=== PATIENT | female | born 1980 | race Two or more races ===

== ENCOUNTER 2023-06-06 16:39 | Emergency (ER) | payer MEDICARE, MEDICAID ==
[~2023-06-06] VITALS: Ht 160 cm; Wt 72.0 kg
[2023-06-06 17:54] LABS: Eosinophils # (auto) 0.2 10 ^3/uL (0-0.8); Mean Corpuscular Hgb Conc. 32.1 g/dL (32.0-36.0); Monocytes # (auto) 0.4 10 ^3/uL (0-1.3); Monocytes % (auto) 5.5 % (0.0-12.0); Neutrophils # (auto) 4.4 10 ^3/uL (1.6-8.6); Nucleated Red Blood Cells % 0.1 %
[2023-06-06 17:56] LABS: Basophils # (auto) 0 10 ^3/uL (0-0.2); Basophils % (auto) 0.6 % (0.0-2.0); Eosinophils % (auto) 2.3 % (0.0-7.0); Hematocrit 43.6 % (36.0-46.0); Lymphocytes # (auto) 2.8 10 ^3/uL (0.4-5.4); Lymphocytes % (auto) 35.4 % (10.0-50.0); Mean Corpuscular Volume 84.1 fL (80.0-100.0); Neutrophils % (auto) 56.2 % (37.0-80.0); Red Blood Cells 5.18 10^6/uL (4.0-5.20); Red Cell Distribution Width 15.1 % (11.8-14.3); White Blood Cell 7.9 10^3/uL (4.4-10.8)
[2023-06-06] MEDS ORDERED: SODIUM CHLORIDE 0.9% 1,000 ML IV ONE (18:00)
[2023-06-06 18:03] LABS: Urine Bacteria MANY /hpf (None Seen); Urine Blood Negative /uL (Negative); Urine Clarity HAZY (Clear); Urine Color Yellow (Yellow); Urine Mucus MODERATE (None Seen); Urine Protein, UAD 1+ (Negative); Urine Specific Gravity 1.041 (1.001-1.035); Urine WBC 11 /hpf (0 - 5)
[2023-06-06 18:08] LABS: Alanine Aminotransferase 22 U/L (7-40); Albumin 4.6 g/dL (3.2-4.8); Alkaline Phosphatase 32 U/L (46-116); Anion Gap 6.9 (5-15); Aspartate Aminotransferase 33 U/L (13-40); BUN/Creatinine Ratio 17.6 (10.0-20.0); Blood Urea Nitrogen 12 mg/dL (9-23); Calcium 9.3 mg/dL (8.7-10.4); Carbon Dioxide 19.1 mmol/L (20-30); Chloride 109 mmol/L (98-107); Glucose 90 mg/dL (74-106); Potassium 4.7 mmol/L (3.5-5.1); Sodium 135 mmol/L (136-145)
[2023-06-06 18:09] LABS: Bilirubin, Total 0.4 mg/dL (0.2-1.0); Total Protein 7.7 g/dL (5.7-8.2)
[2023-06-06] MEDS: PROCHLORPERAZINE EDISYLATE 5 MG/ML 2ML VIAL IV ONE ×2 (18:12→18:30)
[2023-06-06] MEDS ORDERED: MORPHINE SULFATE 4 MG/ML SYR/VIAL IM ONE (18:30)
[2023-06-06] MEDS ORDERED: CIPROFLOXACIN HCL 500 MG TAB PO ONE (18:30)
[2023-06-06] MEDS ORDERED: ONDANSETRON HCL 4 MG/2 ML VIAL IM ONE (18:30)
[2023-06-06 19:09] VITALS: BP 126/85; PULSE 98; RESP 17; TEMP 98.7; O2SAT 100
[2023-06-06] MEDS ORDERED: ZOFR4T PO (19:48)
[2023-06-06] MEDS ORDERED: CIPR-173 PO (19:48)
== END 2023-06-06 19:57 | disposition home or self-care (01) ==
LOC: ER 16:39
DX: R42 Dizziness and giddiness (principal); N39.0 Urinary tract infection, site not specified; E78.5 Hyperlipidemia, unspecified; Z90.49 Acquired absence of other specified parts of digestive tract; Z79.899 Other long term (current) drug therapy
CPT/HCPCS: 36415; 70450; 71046; 80053; 81001; 82962; 83735; 85025; 93005; 96372; 99285; J0780; J2270; J2405; J7030

== ENCOUNTER 2023-10-17 16:04 | Emergency (ER) | payer MEDICARE, MEDICAID ==
[~2023-10-17] VITALS: Ht 160 cm; Wt 75.0 kg
[~2023-10-17 16:04] MED LIST: CIPR-173 PO; ZOFR4T PO
[2023-10-17] MEDS ORDERED: IPRATROPIUM BROM 0.5 MG/2.5ML INH SOL HHN ONE (16:45)
[2023-10-17] MEDS ORDERED: PROCHLORPERAZINE EDISYLATE 5 MG/ML 2ML VIAL IV ONE (16:45)
[2023-10-17] MEDS ORDERED: LACTATED RINGER'S 1,000 ML IV ONE (16:45)
[2023-10-17] MEDS ORDERED: DexAMETHasone SOD PHOS 10MG/1ML VIAL INJ IV ONE (16:45)
[2023-10-17] MEDS ORDERED: MORPHINE SULFATE INJ 2 MG/ml SYRG IV ONE (16:45)
[2023-10-17] MEDS ORDERED: ALBUTEROL SULF 2.5 MG/0.5ML(0.5%) NEB SOLN HHN ONE (16:45)
[2023-10-17 19:32] LABS: Basophils # (auto) 0.1 10 ^3/uL (0-0.2); Basophils % (auto) 0.6 % (0.0-2.0); Eosinophils # (auto) 0.1 10 ^3/uL (0-0.8); Eosinophils % (auto) 0.9 % (0.0-7.0); Hematocrit 41.5 % (36.0-46.0); Hemoglobin 13.4 g/dL (12.2-16.2); Lymphocytes # (auto) 3.4 10 ^3/uL (0.4-5.4); Lymphocytes % (auto) 27.8 % (10.0-50.0); Mean Corpuscular Hemoglobin 26.6 pg (28.0-32.0); Mean Corpuscular Hgb Conc. 32.2 g/dL (32.0-36.0); Mean Corpuscular Volume 82.7 fL (80.0-100.0); Monocytes # (auto) 0.7 10 ^3/uL (0-1.3); Neutrophils # (auto) 7.9 10 ^3/uL (1.6-8.6); Neutrophils % (auto) 64.7 % (37.0-80.0); Nucleated Red Blood Cells % 0.1 %; Red Blood Cells 5.02 10^6/uL (4.0-5.20); Red Cell Distribution Width 14.2 % (11.8-14.3); White Blood Cell 12.2 10^3/uL (4.4-10.8)
[2023-10-17 19:38] LABS: Chloride 109 mmol/L (98-107); Sodium 138 mmol/L (136-145)
[2023-10-17 19:41] LABS: Anion Gap 10 (5-15); Calcium 8.9 mg/dL (8.7-10.4); Carbon Dioxide 19 mmol/L (20-30)
[2023-10-17 19:46] LABS: Alkaline Phosphatase 38 U/L (46-116); Glucose 97 mg/dL (74-106); Magnesium 2.1 mg/dL (1.6-2.6)
[2023-10-17 19:48] LABS: Albumin 4.5 g/dL (3.2-4.8); Aspartate Aminotransferase 30 U/L (13-40); Bilirubin, Total 0.4 mg/dL (0.2-1.0); Total Protein 7.4 g/dL (5.7-8.2)
[2023-10-17 19:52] LABS: Alanine Aminotransferase 34 U/L (7-40); Blood Urea Nitrogen 12 mg/dL (9-23); Lipase 35 U/L (12-53); Potassium 3.7 mmol/L (3.5-5.1)
[2023-10-17 20:30] VITALS: TEMP 98.9; O2SAT 95
[2023-10-17 20:53] VITALS: BP 125/58; PULSE 117; RESP 18
[2023-10-17] MEDS ORDERED: PRED20TA2 PO (22:00)
[2023-10-17] MEDS ORDERED: ALBU108A5 IN (22:00)
[2023-10-17] MEDS ORDERED: LEVO500T91 PO (22:00)
[2023-10-17] MEDS ORDERED: CYCL-611 PO (22:02)
== END 2023-10-17 22:58 | disposition home or self-care (01) ==
LOC: ER 16:04 → EDUNIT# 16:04 → EDBD 16:04 → ER 22:58
DX: B34.9 Viral infection, unspecified (principal); R10.2 Pelvic and perineal pain; R07.81 Pleurodynia; J45.909 Unspecified asthma, uncomplicated; Z88.1 Allergy status to other antibiotic agents; Z79.899 Other long term (current) drug therapy
CPT/HCPCS: 36415; 71046; 80053; 83605; 83690; 83735; 84702; 85025; 87040; 93005; 94640; 96361; 96374; 96375; 99285; J0780; J1100; J2270; J7644

== ENCOUNTER 2024-04-08 21:49 | Emergency (ER) | payer BC, MEDICAID ==
[~2024-04-08] VITALS: Ht 162.6 cm; Wt 63.6 kg
[~2024-04-08 21:49] MED LIST changes: +ALBU108A5 IN; +ALPR1TAB7 PO; +ATOR40TA52 PO; +CHOL500023 PO; -CIPR-173 PO; +HYD25TP TOP; +HYDR-3682 PO; +LEVO500T91 PO; +RIZA10TA50 PO; +ROPI1TAB78 PO; +SENN-105 PO; +ZOLP10TA6 PO
[2024-04-09] MEDS: HYDROcodone-ACET 10/325MG TAB PO ONE (01:08)
[2024-04-09 01:16] VITALS: BP 146/81; PULSE 98; RESP 20; TEMP 97.5; O2SAT 97
== END 2024-04-09 01:21 | disposition home or self-care (01) ==
LOC: ER 21:49 → EDBD 21:49 → ER 04-09 01:18
DX: S09.93XA Unspecified injury of face, initial encounter (principal); R51.9 Headache, unspecified; J45.909 Unspecified asthma, uncomplicated; Z90.49 Acquired absence of other specified parts of digestive tract; Z88.1 Allergy status to other antibiotic agents; Z88.8 Allergy status to other drugs, medicaments and biological substances; Y04.0XXA Assault by unarmed brawl or fight, initial encounter; Y93.89 Activity, other specified; Y92.89 Other specified places as the place of occurrence of the external cause; Y99.8 Other external cause status
CPT/HCPCS: 70486

== ENCOUNTER 2024-05-17 19:31 | Emergency (ER) | payer BC, MEDICAID ==
[~2024-05-17] VITALS: Ht 162.6 cm; Wt 68.0 kg
[2024-05-17 19:40] VITALS: BP 130/83; RESP 17; O2SAT 97
[2024-05-17] MEDS ORDERED: SODIUM CHLORIDE 0.9% 1,000 ML IVB ONE (19:45)
[2024-05-17] MEDS ORDERED: PANTOPRAZOLE 40 MG/10 ML VIAL INJ IV ONE (19:45)
[2024-05-17] MEDS ORDERED: PROCHLORPERAZINE EDISYLATE 5 MG/ML 2ML VIAL IV ONE (19:45)
[2024-05-17 20:17] VITALS: PULSE 122
[2024-05-17 20:33] LABS: Basophils # (auto) 0.1 10 ^3/uL (0-0.2); Basophils % (auto) 0.6 % (0.0-2.0); Eosinophils # (auto) 0.1 10 ^3/uL (0-0.8); Eosinophils % (auto) 0.6 % (0.0-7.0); Hematocrit 48.9 % (36.0-46.0); Hemoglobin 16.2 g/dL (12.2-16.2); Lymphocytes # (auto) 3.4 10 ^3/uL (0.4-5.4); Lymphocytes % (auto) 34.2 % (10.0-50.0); Mean Corpuscular Hemoglobin 27.3 pg (28.0-32.0); Mean Corpuscular Hgb Conc. 33.1 g/dL (32.0-36.0); Mean Corpuscular Volume 82.3 fL (80.0-100.0); Monocytes # (auto) 0.5 10 ^3/uL (0-1.3); Monocytes % (auto) 4.8 % (0.0-12.0); Neutrophils % (auto) 59.8 % (37.0-80.0); Nucleated Red Blood Cells % 0.1 %; Platelet Count (auto) 432 10^3/uL (140-450); Red Blood Cells 5.94 10^6/uL (4.0-5.20); Red Cell Distribution Width 14.9 % (11.8-14.3)
[2024-05-17 20:55] LABS: Alanine Aminotransferase 33 U/L (7-40); Alkaline Phosphatase 42 U/L (46-116); Anion Gap 10 (5-15); BUN/Creatinine Ratio 9.5 (10.0-20.0); Blood Urea Nitrogen 10 mg/dL (9-23); Calcium 10.2 mg/dL (8.7-10.4); Carbon Dioxide 17 mmol/L (20-30); Chloride 109 mmol/L (98-107); Glucose 134 mg/dL (74-106); Potassium 3.7 mmol/L (3.5-5.1); Sodium 136 mmol/L (136-145)
[2024-05-17 20:56] LABS: Albumin 4.9 g/dL (3.2-4.8); Aspartate Aminotransferase 27 U/L (13-40); Bilirubin, Total 0.5 mg/dL (0.2-1.0); Total Protein 8.2 g/dL (5.7-8.2)
[2024-05-17 21:12] LABS: Lipase 64 U/L (12-53)
== END 2024-05-18 00:40 | disposition home or self-care (01) ==
LOC: ER 19:31 → EDBD 19:31 → ER 05-18 00:40
DX: K29.00 Acute gastritis without bleeding (principal); R10.11 Right upper quadrant pain; J45.909 Unspecified asthma, uncomplicated; F41.9 Anxiety disorder, unspecified; F17.210 Nicotine dependence, cigarettes, uncomplicated; Z88.8 Allergy status to other drugs, medicaments and biological substances; Z98.890 Other specified postprocedural states; Z79.899 Other long term (current) drug therapy
CPT/HCPCS: 36415; 74176; 80053; 83690; 85025; 93005

== ENCOUNTER 2025-02-03 12:30 | Emergency (ER) | payer MEDICARE, MEDICAID ==
[~2025-02-03] VITALS: Ht 165.1 cm; Wt 78.0 kg
[2025-02-03] MEDS ORDERED: methylPREDNISolone SOD SUCC 125 MG/2 ML VL IM ONE (12:45)
--- NOTE | 2025-02-03 12:59 | ED.PDOC ---
History of Present Illness HPI Comments 45F BIBA w/ prior Hx of Pancreatitis, glaucoma, Asthma, Anxiety, UTI; SHx of Appendectomy, Cholecystectomy and the c/c of allergic reaction. Pt reports on feeling itchy while being at home at 1145 today. Pt does not know what substance she is allergic to as well as being SOB, and dizzy. Pt was given Benadryl en rout. Pt had a HR on scene of 101, and a SAT of 99% RA. Denies chills, fever, N/V/D, SOB, CP. No other associated symptoms, modifiers, recent injuries or sick contacts present at this time. Chief Complaint: Allergic Reaction Time Seen by MD: 12:30 Primary Care Provider: NONE Reviewed Notes: Nurses Notes, Medications, Allergies Allergies: Coded Allergies: Ketorolac Tromethamine (Verified Allergy, Severe, 12/14/23) Azithromycin (Verified Allergy, Unknown, 06/06/23) Metoclopramide (Verified Allergy, Unknown, RASH, 12/15/23) NSAIDs (Verified Allergy, Unknown, 06/06/23) Home Meds Active Scripts Levofloxacin Hemihydrate (LEVOFLOXACIN) 500 Mg Tab, 500 MG PO DAILY, #10 TAB Prov:LUZ WAY MD 10/17/23 Albuterol Sulfate (Albuterol Sulfate Hfa) 108 Mcg/Act Aer, 108 MCG IN QID PRN, #1 AER Prov:LUZ WAY MD 10/17/23 Ondansetron Odt 4MG Tab (ZOFRAN PO) 4 Mg Tb, 4 MG PO Q6HP PRN for 5 Days, #20 TAB ODT TAB-DISSOLVE IN MOUTH, THEN SWALLOW Prov:DIOGO LOUIS MD 06/06/23 Reported Medications Senna (Senna) 8.6 Mg Tab, 2 TAB PO DAILY 12/14/23 Cholecalciferol (VITAMIN D3) 5,000 Unit Tab, 1 TAB PO DAILY 12/14/23 Rizatriptan Benzoate (RIZATRIPTAN BENZOATE) 10 Mg Tab, TAB PO 12/14/23 Hydroxyzine Hcl (Hydroxyzine Hcl) 25 Mg Tab, 1 TAB PO BID 12/14/23 Hydrocortone (Hydrocortisone 2.5%) 1 Applic Ap, TOP 12/14/23 Ropinirole Hydrochloride (Ropinirole Hcl) 1 Mg Tab, 1 TAB PO BID 12/13/23 Atorvastatin Calcium (ATORVASTATIN CALCIUM) 40 Mg Tab, 1 TAB PO DAILY 12/13/23 Alprazolam (Alprazolam) 1 Mg Tab, 1 TAB PO BIDPRN PRN 12/13/23 Zolpidem Tartrate (Zolpidem Tartrate) 10 Mg Tab, 1 TAB PO QHSP PRN 12/13/23 Information Source: Patient, Emergency Med Personnel Mode of Arrival: Ambulatory Severity: Moderate Timing: Minutes Duration: Since onset, Minutes Prehospital treatment: None Past Medical History PAST MEDICAL HISTORY: Anxiety, Asthma, UTI'S Past Medical History (Other): Glaucoma, pancreatitis Surgical History: Appendectomy, Cholecystectomy DIRECTOR AND PROFESSOR History: Denies all DIRECTOR AND PROFESSOR Hx Family History Family History: Reviewed,noncontributory to illness, Unknown Social History Smoker: Cigarettes Alcohol: Denies ETOH Use Drugs: Denies Drug Use Lives In: Home Constitutional: reports: others (Allergic reaction); denies: chills, diaphoresis, fatigue, fever, malaise, sweats, weakness EENTM: denies: blurred vision, double vision, ear bleeding, ear discharge, ear drainage, ear pain, ear ringing, eye pain, eye redness, hearing loss, mouth pain, mouth swelling, nasal discharge, nose bleeding, nose congestion, nose pain, photophobia, tearing, throat pain, throat swelling, voice changes, others Respiratory: denies: cough, hemoptysis, orthopnea, SOB at rest, shortness of breath, SOB with excertion, stridor, wheezing, others Cardiovascular: denies: chest pain, dizzy spells, diaphoresis, Dyspnea on exertion, edema, irregular heart beat, left arm pain, lightheadedness, palpitations, PND, syncope, others Gastrointestinal: denies: abdomen distended, abdominal pain, blood streaked bowels, constipated, diarrhea, dysphagia, difficulty swallowing, hematemesis, melena, nausea, poor appetite, poor fluid intake, rectal bleeding, rectal pain, vomiting, others Genitourinary: denies: abnormal vagina bleeding, burning, dyspareunia, dysuria, flank pain, frequency, hematuria, incontinence, pain, , vagina discharge, urgency, others Neurological: denies: dizziness, fainting, headache, left sided numbness, left sided weakness, numbness, paresthesia, pre-existing deficit, right sided numbness, right sided weakness, seizure, speech problems, tingling, tremors, weakness, others Musculoskeletal: denies: back pain, gout, joint pain, joint swelling, muscle pain, muscle stiffness, neck pain, others Integumetry: denies: bruises, change in color, change in hair/nails, dryness, laceration, lesions, lumps, rash, wounds, others Allergic/Immunocompromised: denies: Difficulty Healing, Frequent Infections, Hives, Itching, others Hematologic/Lymphatic: denies: anemia, blood clots, easy bleeding, easy bruising, swollen glands, others Endocrine: denies: excessive hunger, excessive sweating, excessive thirst, excessive urination, flushing, intolerance to cold, intolerance to heat, unexplained weight gain, unexplained weight loss, others Psychiatric: denies: anxiety, bipolar disorder, depression, hopeless, panic disorder, schizophrenia, sleepless, suicidal, others All Other Systems: Reviewed and Negative Physical Exam General Appearance: Moderate Distress, Normal HEENT: Normal ENT Inspection, Pharynx Normal, TMs Normal Neck: Full Range of Motion, Non-Tender, Normal, Normal Inspection Respiratory: Chest Non-Tender, Lungs Clear, No Accessory Muscle Use, No Respiratory Distress, Normal Breath Sounds Cardiovascular: No Edema, No JVD, No Murmur, No Gallop, Normal Peripheral Pulses, Regular Rate/Rhythm Breast Exam: Deferred Gastrointestinal: No Organomegaly, Non Tender, No Pulsatile Mass, Normal Bowel Sounds, Soft Genitalia: Deferred Pelvic: Deferred Rectal: Deferred Extremities: No calf tenderness, Normal capillary refill, Normal inspection, No rmal range of motion, Non-tender, No pedal edema Musculoskeletal : Apperance: Normal 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 Was a procedure done?: No Differential Dx Considerations may include: Anxiety Electrolyte imbalance X-Ray, Labs, Meds, VS Vital Signs Date Time Temp Pulse Resp B/P (MAP) Pulse Ox O2 Delivery O2 Flow Rate FiO2 02/03/25 13:08 99.1 101 16 118/79 (92) 97 99.1 02/03/25 13:08 101 16 97 Room Air 02/03/25 12:47 98.7 83 16 115/82 (93) 97 98.7 02/03/25 12:47 16 97 Room Air* 0 21 Current Medications Medications (Trade) Dose Ordered Sig/Chloe Route Start Time Stop Time Status Last Admin Methylprednisolone Sodium Succinate (Solu Medrol) 120 mg ONCE ONCE IM 02/03/25 13:00 02/03/25 13:01 DC 02/03/25 13:15 Patient alert. No sign of distress. Vitals stable. Answering questions. Saturation pristine on room air. Was given steroid. No sign of any allergies. Pristine physical examination. No sign of any injury. No rash. Denies shortness a breath. Denies chest pain. No leg swelling. She did not want a chest x-ray. Reviewed her history. Explained to the patient. Was told to follow up with her primary care physician. Was told to come back if there is any problem. Time of 1ST Reevaluation: 13:00 Reevaluation 1ST: Unchanged Patient Education/Counseling: Diagnosis, Treatment, Prognosis Family Education/Counseling: No Family Present Departure 1 Departure Time of Disposition: 13:29 Impression: Primary Impression: Autonomic disorder Additional Impression: Anxiety Disposition: 01 HOME / SELF CARE / HOMELESS Condition: Good Discharged With: Self Critical Care Note Critical Care Time?: No Stability Stability form required: No Heart Score Heart Score: Heart Score Response (Comments) Value History N/A 0 EKG N/A 0 Age N/A 0 Risk Factors N/A 0 Troponin N/A 0 Total 0 I personally scribed for LALO DC MD ([email or web address]) on 02/03/25 at 12:59. Electronically submitted by Bharathi Montes ([email or web address]). LALO DC MD February 03, 2025 12:59
[2025-02-03 13:08] VITALS: BP 118/79; PULSE 101; RESP 16; TEMP 99.1; O2SAT 97
[2025-02-03] MEDS: methylPREDNISolone SOD SUCC 40 MG/ML VL IM ONE (13:15)
== END 2025-02-03 14:36 | disposition home or self-care (01) ==
LOC: EDBD 12:30 → ER 12:30
DX: G90.9 Disorder of the autonomic nervous system, unspecified (principal); F41.9 Anxiety disorder, unspecified; L29.9 Pruritus, unspecified; J45.909 Unspecified asthma, uncomplicated; F17.210 Nicotine dependence, cigarettes, uncomplicated; Z79.899 Other long term (current) drug therapy; Z90.49 Acquired absence of other specified parts of digestive tract; Z88.6 Allergy status to analgesic agent; Z88.1 Allergy status to other antibiotic agents; Z88.8 Allergy status to other drugs, medicaments and biological substances
CPT/HCPCS: 96372; 99283; J2919

== ENCOUNTER 2025-05-09 17:29 | Emergency (ER) | payer MEDICARE, MEDICAID ==
[~2025-05-09] VITALS: Ht 160 cm; Wt 69.1 kg
[2025-05-09 19:09] VITALS: BP 141/77; PULSE 101; RESP 18; TEMP 98.4; O2SAT 98
[2025-05-09] MEDS: ONDANSETRON ODT 4 MG TAB PO ONE (19:30)
--- NOTE | 2025-05-09 19:33 | ED.PDOC ---
Eye-HPI HPI Comments 45 year old female presents to ER with complaints of facial pain x4 days. Patient reports that she has been experiencing pain/swelling/redness to left side of face x 4 days and intermittent fever x 1 day. Notes that she was seen at urgent care for her symptoms three days ago and prescribed clindamycin that she has been taking without relief. She rates her current pain a 9/10 to left side of face that she states radiates to left side of forehead. Patient presents to ER ambulatory on arrival, with steady gait, a-febrile, in no distress with two small puncture hidalgo <.5cm in size noted to left side of face with mild associated swelling/erythema/TTP. Denies n/v, numbness/tingling, known insect bite or any further symptoms/complaints Chief Complaint: Tooth Pain Time Seen by MD: 19:09 Primary Care Provider: UNKNOWN Reviewed Notes: Nurses Notes, Medications, Allergies Allergies: Coded Allergies: Clarithromycin (Verified Allergy, Severe, 05/09/25) Ketorolac Tromethamine (Verified Allergy, Severe, 12/14/23) Azithromycin (Verified Allergy, Unknown, 06/06/23) Metoclopramide (Verified Allergy, Unknown, RASH, 12/15/23) NSAIDs (Verified Allergy, Unknown, 06/06/23) Home Meds Active Scripts Levofloxacin Hemihydrate (LEVOFLOXACIN) 500 Mg Tab, 500 MG PO DAILY, #10 TAB Prov:LUZ WAY MD 10/17/23 Albuterol Sulfate (Albuterol Sulfate Hfa) 108 Mcg/Act Aer, 108 MCG IN QID PRN, #1 AER Prov:LUZ WAY MD 10/17/23 Ondansetron Odt 4MG Tab (ZOFRAN PO) 4 Mg Tb, 4 MG PO Q6HP PRN for 5 Days, #20 TAB ODT TAB-DISSOLVE IN MOUTH, THEN SWALLOW Prov:DIOGO LOUIS MD 06/06/23 Reported Medications Senna (Senna) 8.6 Mg Tab, 2 TAB PO DAILY 12/14/23 Cholecalciferol (VITAMIN D3) 5,000 Unit Tab, 1 TAB PO DAILY 12/14/23 Rizatriptan Benzoate (RIZATRIPTAN BENZOATE) 10 Mg Tab, TAB PO 12/14/23 Hydroxyzine Hcl (Hydroxyzine Hcl) 25 Mg Tab, 1 TAB PO BID 12/14/23 Hydrocortone (Hydrocortisone 2.5%) 1 Applic Ap, TOP 12/14/23 Ropinirole Hydrochloride (Ropinirole Hcl) 1 Mg Tab, 1 TAB PO BID 12/13/23 Atorvastatin Calcium (ATORVASTATIN CALCIUM) 40 Mg Tab, 1 TAB PO DAILY 12/13/23 Alprazolam (Alprazolam) 1 Mg Tab, 1 TAB PO BIDPRN PRN 12/13/23 Zolpidem Tartrate (Zolpidem Tartrate) 10 Mg Tab, 1 TAB PO QHSP PRN 12/13/23 Information Source: Patient Mode of Arrival: Ambulatory Past Medical History PAST MEDICAL HISTORY: Anxiety, Asthma, UTI'S Surgical History: Appendectomy, Cholecystectomy RADIO PERFORMER History: Denies all RADIO PERFORMER Hx Family History Family History: Unknown Social History Smoker: Cigarettes, Less Than 1 Pack/Day Alcohol: Denies ETOH Use Drugs: Denies Drug Use Lives In: Home Constitutional: denies: chills, diaphoresis, fatigue, fever, malaise, sweats, weakness, others EENTM: reports: others (As stated in HPI) Respiratory: denies: cough, hemoptysis, orthopnea, SOB at rest, shortness of breath, SOB with excertion, stridor, wheezing, others Cardiovascular: denies: chest pain, dizzy spells, diaphoresis, Dyspnea on exertion, edema, irregular heart beat, left arm pain, lightheadedness, palpitations, PND, syncope, others Gastrointestinal: denies: abdomen distended, abdominal pain, blood streaked bowels, constipated, diarrhea, dysphagia, difficulty swallowing, hematemesis, melena, nausea, poor appetite, poor fluid intake, rectal bleeding, rectal pain, vomiting, others Genitourinary: denies: abnormal vagina bleeding, burning, dyspareunia, dysuria, flank pain, frequency, hematuria, incontinence, pain, , vagina discharge, urgency, others Neurological: denies: dizziness, fainting, headache, left sided numbness, left sided weakness, numbness, paresthesia, pre-existing deficit, right sided numbness, right sided weakness, seizure, speech problems, tingling, tremors, weakness, others Musculoskeletal: denies: back pain, gout, joint pain, joint swelling, muscle pain, muscle stiffness, neck pain, others Integumetry: reports: others (As stated in HPI) Allergic/Immunocompromised: denies: Difficulty Healing, Frequent Infections, Hives, Itching, others Hematologic/Lymphatic: denies: anemia, blood clots, easy bleeding, easy bruising, swollen glands, others Endocrine: denies: excessive hunger, excessive sweating, excessive thirst, excessive urination, flushing, intolerance to cold, intolerance to heat, unexpla ined weight gain, unexplained weight loss, others Psychiatric: denies: anxiety, bipolar disorder, depression, hopeless, panic disorder, schizophrenia, sleepless, suicidal, others Physical Exam General Appearance: No Apparent Distress HEENT: Normal ENT Inspection, PERRL/EOMI, Pharynx Normal, TMs Normal, Other (Two small puncture hidalgo <.5cm in size noted to left side of face with mild associated swelling/erythema/TTP. No fluctuance/drainage/further skin changes noted) Neck: Full Range of Motion, Non-Tender, Normal Respiratory: Chest Non-Tender, Lungs Clear, No Accessory Muscle Use, No Respiratory Distress, Normal Breath Sounds Cardiovascular: No Murmur, No Gallop, Regular Rate/Rhythm Breast Exam: Deferred Gastrointestinal: NOT DONE Genitalia: Deferred Pelvic: Deferred Rectal: Deferred Extremities: Normal capillary refill, Normal range of motion Neurologic: Alert, family practice medical doctor II-XII nml as Tested, No Motor Deficits, Normal Affect, Normal Mood, No Sensory Deficits Cerebellar Function: Normal Reflexes: Normal Skin: Dry, Warm Lymphatic: No Adenopathy Was a procedure done? Was a procedure done?: No Sedation Sedation?: No EENT DIFF Eye: N/A Other Differential Diagnosis Abscess, sepsis, abrasion, puncture wound X-Ray, Labs, Meds, VS Vital Signs Date Time Temp Pulse Resp B/P (MAP) Pulse Ox O2 Delivery O2 Flow Rate FiO2 05/09/25 19:09 101 18 98 Room Air 05/09/25 19:09 98.4 97 18 141/77 (98) 97 98.4 05/09/25 17:30 98.2 120 18 141/88 99 98.2 Current Medications Medications (Trade) Dose Ordered Sig/Chloe Route Start Time Stop Time Status Last Admin Clindamycin Phosphate 50 ml @ 50 mls/hr ONCE ONCE IV 05/09/25 19:30 05/09/25 20:29 DC 05/09/25 21:12 Ceftriaxone Sodium 50 ml @ 100 mls/hr ONCE ONCE IV 05/09/25 19:30 05/09/25 19:59 DC 05/09/25 20:49 Ondansetron HCl (Zofran Po) 4 mg ONCE ONCE PO 05/09/25 19:30 05/09/25 19:31 DC 05/09/25 19:30 Acetaminophen/ Codeine Phosphate (Tylenol W/Cod #3 Tablet) 1 tab ONCE ONCE PO 05/09/25 19:30 05/09/25 19:31 DC 05/09/25 20:11 Hep-Lock IV ordered Clindamycin 900 mg IV ordered Rocephin 1 g IV ordered Tylenol # three one tablet p.o. ordered Zofran 4 mg p.o. ordered Solu-Medrol 125 mg IV ordered Patient had improvement in symptoms and well appearing/in no distress prior to discharge Advised to continue clindamycin as currently prescribed Advised to f/u in 2 days for wound check Advised to follow up with PCP in 1-2 days Patient verbalized understanding and agreeable with current plan of care Advised to return to ER immediately if symptoms worsen Time of 1ST Reevaluation: 19:32 Reevaluation 1ST: N/A Patient Education/Counseling: Diagnosis, Treatment, Prognosis, Need For Follow Up Family Education/Counseling: No Family Present SEPSIS Sepsis Screen Date sepsis recognized/suspect: May 09, 2025 Time Sepsis recognized/suspect: 1732 Recent Procedure: No On Antibiotic Therapy: No Respiratory Rate >20: No Heart Rate >90: Yes Temp<36 C (96.8 F) or >38.3 C: No SBP <90 or MAP <65 mmHG: No New Acute Mental Status Change: No Is the patient on CPAP, BIPAP,: No Physician Orders Heplock Iv (05/09/25 ) Vital Signs Date Time Temp Pulse Resp B/P (MAP) Pulse Ox O2 Delivery O2 Flow Rate FiO2 05/09/25 19:09 101 18 98 Room Air 05/09/25 19:09 98.4 97 18 141/77 (98) 97 98.4 05/09/25 17:30 98.2 120 18 141/88 99 98.2 Medications Medications Dose Ordered Sig/Chloe Route Start Time Stop Time Status Last Admin Dose Admin Acetaminophen/ Codeine Phosphate 1 tab ONCE ONCE PO 05/09/25 19:30 05/09/25 19:31 DC 05/09/25 20:11 Ceftriaxone Sodium 50 ml @ 100 mls/hr ONCE ONCE IV 05/09/25 19:30 05/09/25 19:59 DC 05/09/25 20:49 Clindamycin Phosphate 50 ml @ 50 mls/hr ONCE ONCE IV 05/09/25 19:30 05/09/25 20:29 DC 05/09/25 21:12 Ondansetron HCl 4 mg ONCE ONCE PO 05/09/25 19:30 05/09/25 19:31 DC 05/09/25 19:30 Departure 1 Departure Time of Disposition: 19:30 Impression: Primary Impression: Cellulitis, face Disposition: HOME / SELF CARE / HOMELESS Condition: Stable Discharged With: Self Critical Care Note Critical Care Time?: No Stability Stability form required: No Heart Score Heart Score: Heart Score Response (Comments) Value History N/A 0 EKG N/A 0 Age N/A 0 Risk Factors N/A 0 Troponin N/A 0 Total 0 SAMI FELIZ May 09, 2025 19:33
[2025-05-09] MEDS: ACETAMINOPHEN/CODEINE#3 (300/30mg) TAB PO ONE (20:11)
[2025-05-09] MEDS: cefTRIAXone 1GM/50ML D5W 50 ML IV ONE (20:49)
[2025-05-09] MEDS ORDERED: methylPREDNISolone SOD SUCC 125 MG/2 ML VL IV ONE (21:00)
[2025-05-09] MEDS: CLINDAMYCIN 900MG IV 50 ML IV ONE (21:12)
== END 2025-05-09 21:45 | disposition home or self-care (01) ==
LOC: ER 17:29
DX: S01.83XA Puncture wound without foreign body of other part of head, initial encounter (principal); L03.211 Cellulitis of face; F17.210 Nicotine dependence, cigarettes, uncomplicated; F41.9 Anxiety disorder, unspecified; J45.909 Unspecified asthma, uncomplicated; Z90.49 Acquired absence of other specified parts of digestive tract; Z88.6 Allergy status to analgesic agent; Z88.1 Allergy status to other antibiotic agents; Z87.440 Personal history of urinary (tract) infections; Z79.899 Other long term (current) drug therapy; X58.XXXA Exposure to other specified factors, initial encounter; Y93.89 Activity, other specified; Y92.89 Other specified places as the place of occurrence of the external cause; Y99.8 Other external cause status
CPT/HCPCS: 96365; 96368; 99284; J0696; J3490; Q0162; 96375